=== PATIENT | female | born 1945 | race Caucasian/White ===

== ENCOUNTER 2023-07-08 13:15 | Emergency (ER) | payer MEDICARE ==
[2023-07-08 13:24] VITALS: TEMP 97.1
[2023-07-08] MEDS ORDERED: KETOROLAC 15 MG/ML 1 ML VIAL IM STA (14:13)
--- NOTE | 2023-07-08 14:13 | ED ---
General Adult HPI - General Chief complaint: Fall Stated complaint: fall Time Seen by Provider: 07/08/23 13:30 Source: patient, RN notes reviewed, old records reviewed Mode of arrival: EMS Limitations: no limitations - History of Present Illness Initial comments: This is a 77-year-old female presents emergency department stating she slipped out of bed onto her about her left hip hurt. Patient states it doesn't hurt as bad as it did earlier and she is currently moving into bed. Patient states that on the lateral posterior aspect of the hip. Patient denies hitting her head neck. Patient denies hitting anything else per patient has no other complaints - Related Data Home Medications Medication Instructions Recorded Confirmed Pantoprazole Sodium [Protonix] 40 mg PO DAILY 05/20/14 03/12/15 traMADol HCl [Ultram] 50 mg PO Q6H PRN 05/20/14 03/12/15 Ascorbic Acid [Vitamin C] 500 mg PO DAILY@1200 03/12/15 03/12/15 Calcium Carbonate [Calcium] 600 mg PO DAILY 03/12/15 03/12/15 Gabapentin [Neurontin] 400 mg PO TID 03/12/15 03/12/15 HYDROcodone/APAP 10-325MG [[place] 1 tab PO Q6H PRN 03/12/15 03/12/15 10-325] Multivitamins, Thera [Multivitamin 1 tab PO DAILY@1200 03/12/15 03/12/15 (formulary)] Vitamin B Complex 1 tab PO DAILY 03/12/15 03/12/15 Vitamin E (Dl,Tocopheryl Acet) 1,000 unit PO DAILY 03/12/15 03/12/15 [Vitamin E] Previous Rx's Medication Instructions Recorded Cefuroxime [Ceftin] 250 mg PO BID #20 tablet 03/15/15 Allergies Allergy/AdvReac Type Severity Reaction Status Date / Time No Known Allergies Allergy Verified 03/12/15 11:46 Review of Systems ROS Statement: Those systems with pertinent positive or pertinent negative responses have been documented in the HPI. ROS Other: All systems not noted in ROS Statement are negative. Past Medical History Past Medical History: Osteoarthritis (OA) Additional Past Medical History / Comment(s): SPINAL STENOSIS, NEUROPATHY LEGS, FX LEFT HIP, WOUND ON LEFT HEEL . History of Any Multi-Drug Resistant Organisms: None Reported Past Surgical History: Orthopedic Surgery Additional Past Surgical History / Comment(s): RT SHOULDER SURG, REPAIR OF PERFORATED DUODENAL ULCER, HX OF FX LEFT HIP WITH SURGERY X2 ([facility] 2014) Past Anesthesia/Blood Transfusion Reactions: No Reported Reaction Past Psychological History: No Psychological Hx Reported Past Alcohol Use History: None Reported Past Drug Use History: None Reported - Past Family History Father Family Medical History: Cancer General Exam - General Exam Comments Initial Comments: GENERAL: Patient is well-developed and well-nourished. Patient is nontoxic and well- hydrated and is in no acute distress. ENT: Neck is soft and supple. No significant lymphadenopathy is noted. Oropharynx is clear. Moist mucous membranes. Neck has full range of motion without eliciting any pain. EYES: The sclera were anicteric and conjunctiva were pink and moist. Extraocular movements were intact and pupils were equal round and reactive to light. Eyelids were unremarkable. SKIN: Skin is clear with no lesions or rashes and otherwise unremarkable. NEUROLOGIC: Patient is alert and oriented x3. Cranial nerves II through XII are grossly intact. Motor and sensory are also intact. Normal speech, volume and content. Symmetrical smile. MUSCULOSKELETAL: Normal extremities with adequate strength and full range of motion. No lower extremity swelling or edema. No calf tenderness. Patient has some tenderness on the lateral posterior aspect of her left hip LYMPHATICS: No significant lymphadenopathy is noted PSYCHIATRIC: Normal psychiatric evaluation. Limitations: no limitations Course Vital Signs 07/08/23 13:20 Temperature 97.1 F L Pulse Rate 96 Respiratory 16 Rate O2 Sat by Pulse 96 Oximetry Medical Decision Making - Medical Decision Making Was pt. sent in by a medical professional or institution (, PA, CABLE ENGINEER, urgent care, hospital, or [facility]...) When possible be specific @ -No Did you speak to anyone other than the patient for history (EMS, parent, family, police, friend...)? What history was obtained from this source @ -No Did you review nursing and triage notes (agree or disagree)? Why? @ -I reviewed and agree with nursing and triage notes Were old charts reviewed (outside hosp., previous admission, EMS record, old EKG, old radiological studies, urgent care reports/EKG's, [facility] records)? Report findings @ -No old charts were reviewed Differential Diagnosis (chest pain, altered mental status, abdominal pain women, abdominal pain men, vaginal bleeding, weakness, fever, dyspnea, syncope, headache, dizziness, GI bleed, back pain, seizure, CVA, palpatations, mental health, musculoskeletal)? @ -Differential musculoskeletal EKG interpreted by me (3pts min.). @ -As above X-rays interpreted by me (1pt min.). @ -X-ray of the hip and pelvis show no acute abnormality CT interpreted by me (1pt min.). @ -None done U/S interpreted by me (1pt. min.). @ -None done What testing was considered but not performed or refused? (CT, X-rays, U/S, labs)? Why? @ -None What meds were considered but not given or refused? Why? @ -None Did you discuss the management of the patient with other professionals (professionals i.e. , PA, CABLE ENGINEER, lab, RT, psych nurse, criminal justice social worker, quality control microbiology supervisor, teacher, chief business officer, behavioral health case manager)? Give summary @ -No Was smoking cessation discussed for >3mins.? @ -No Was critical care preformed (if so, how long)? @ -No Were there social determinants of health that impacted care today? How? (Homelessness, low income, unemployed, alcoholism, drug addiction, transportation, low edu. Level, literacy, decrease access to med. care, intermediate, rehab)? @ -No Was there de-escalation of care discussed even if they declined (Discuss DNR or withdrawal of care, Hospice)? DNR status @ -No What co-morbidities impacted this encounter? (DM, HTN, Smoking, COPD, CAD, Cancer, CVA, ARF, Chemo, Hep., AIDS, mental health diagnosis, sleep apnea, morbid obesity)? @ -None Was patient admitted / discharged? Hospital course, mention meds given and route, prescriptions, significant lab abnormalities, going to OR and other pertinent info. @ -Patient's x-ray showed no acute abnormality. Patient was able to ablate. Patient received Toradol and it didn't help with the pain. Undiagnosed new problem with uncertain prognosis? @ -No Drug Therapy requiring intensive monitoring for toxicity (Heparin, Nitro, Insulin, Cardizem)? @ -No Were any procedures done? @ -No Diagnosis/symptom? @ -Hip contusion Acute, or Chronic, or Acute on Chronic? @ -Acute Uncomplicated (without systemic symptoms) or Complicated (systemic symptoms)? @ -Complicated Side effects of treatment? @ -No Exacerbation, Progression, or Severe Exacerbation? @ -No Poses a threat to life or bodily function? How? (Chest pain, [place], [place], pneumonia, PE, COPD, DKA, ARF, appy, cholecystitis, CVA, Diverticulitis, Homicidal, Suicidal, threat to staff... and all critical care pts) @ -No Disposition Clinical Impression: Fall, Contusion, hip Disposition: HOME SELF-CARE Condition: Good Instructions (If sedation given, give patient instructions): Fall Prevention fo r Older Adults (ED), Contusion in Adults (ED) Is patient prescribed a controlled substance at d/c from ED?: No Referrals: Lucas Kwon MD [Primary Care Provider] - 1-2 days Time of Disposition: 14:25
--- NOTE | 2023-07-08 14:15 | XR ---
EXAMINATION TYPE: XR Hip LT and AP Pelvis DATE OF EXAM: 07/08/2023 2:09 PM INDICATION: Patient age:Female; 77 years old; Reason for study: Fall; PHH. COMPARISON: Pelvic radiograph 03/11/2015 TECHNIQUE: The left hip was examined in the frontal and lateral projections and a AP pelvis. FINDINGS: Postsurgical changes from left hip arthroplasty. Hardware appears intact. There is surround ing heterotopic ossification redemonstrated.No evidence of any acute osseous pathology, joint disloca tion, or soft tissue swelling. Mild osteoarthritic changes of the right hip with medial joint space n arrowing and acetabular sclerosis. Marked degenerative changes of the visualized lower lumbar spine. Few pelvic phleboliths. IMPRESSION: 1. No acute osseous pathology. 2. Postsurgical changes from left hip arthroplasty. Hardware appears intact. 3. Mild osteoarthritic changes of the right hip.
[2023-07-08 15:23] VITALS: BP 131/76; PULSE 89; RESP 18
== END 2023-07-08 15:23 | disposition home or self-care (01) ==
LOC: EC 13:15
DX: S70.02XA Contusion of left hip, initial encounter (principal); M16.11 Unilateral primary osteoarthritis, right hip; W06.XXXA Fall from bed, initial encounter
CPT/HCPCS: 73502; 99284; J1885

== ENCOUNTER 2025-04-22 17:42 | Emergency (ER) | payer MEDICARE ==
--- NOTE | 2025-04-22 18:55 | ED ---
Back Pain HPI - General Chief Complaint: Back Pain/Injury Stated Complaint: numbness Time Seen by Provider: 04/22/25 18:40 Source: patient, RN notes reviewed, old records reviewed Limitations: no limitations - History of Present Illness Initial Comments: This is a 79-year-old female with no new trauma coming in with severe back pain today. History of spinal stenosis severe pain is more severe today with numbness and tingling into her buttocks. Patient has no neurological complaints no loss of bowel or bladder no new trauma MD Complaint: back pain -: hour(s) Radiation: none Severity scale (1-10): 10 Quality: sharp Consistency: constant Improves With: none Worsens With: none Associated Symptoms: denies other symptoms Treatments Prior to Arrival: other - Related Data Home Medications Medication Instructions Recorded Confirmed Pantoprazole Sodium [Protonix] 40 mg PO DAILY 05/20/14 03/12/15 traMADol HCl [Ultram] 50 mg PO Q6H PRN 05/20/14 03/12/15 Ascorbic Acid [Vitamin C] 500 mg PO DAILY@1200 03/12/15 03/12/15 Calcium Carbonate [Calcium] 600 mg PO DAILY 03/12/15 03/12/15 Gabapentin [Neurontin] 400 mg PO TID 03/12/15 03/12/15 HYDROcodone/APAP 10-325MG [[place] 1 tab PO Q6H PRN 03/12/15 03/12/15 10-325] Multivitamins, Thera [Multivitamin 1 tab PO DAILY@1200 03/12/15 03/12/15 (formulary)] Vitamin B Complex 1 tab PO DAILY 03/12/15 03/12/15 Vitamin E (Dl,Tocopheryl Acet) 1,000 unit PO DAILY 03/12/15 03/12/15 [Vitamin E] Previous Rx's Medication Instructions Recorded Cefuroxime [Ceftin] 250 mg PO BID #20 tablet 03/15/15 Allergies Allergy/AdvReac Type Severity Reaction Status Date / Time No Known Allergies Allergy Verified 04/22/25 18:01 Review of Systems ROS Statement: Those systems with pertinent positive or pertinent negative responses have been documented in the HPI. ROS Other: All systems not noted in ROS Statement are negative. Past Medical History Past Medical History: Osteoarthritis (OA) Additional Past Medical History / Comment(s): SPINAL STENOSIS, NEUROPATHY LEGS, FX LEFT HIP, WOUND ON LEFT HEEL . History of Any Multi-Drug Resistant Organisms: None Reported Past Surgical History: Orthopedic Surgery Additional Past Surgical History / Comment(s): RT SHOULDER SURG, REPAIR OF PERFORATED DUODENAL ULCER, HX OF FX LEFT HIP WITH SURGERY X2 ([facility] 2014) Past Anesthesia/Blood Transfusion Reactions: No Reported Reaction Past Psychological History: No Psychological Hx Reported Smoking Status: Never smoker Past Alcohol Use History: None Reported Past Drug Use History: None Reported - Past Family History Father Family Medical History: Cancer General Exam Limitations: no limitations General appearance: alert, in no apparent distress Head exam: Present: atraumatic, normocephalic, normal inspection Eye exam: Present: normal appearance, PERRL, EOMI. Absent: scleral icterus, conjunctival injection, periorbital swelling ENT exam: Present: normal exam, mucous membranes moist Neck exam: Present: normal inspection. Absent: tenderness, meningismus, lymphadenopathy Respiratory exam: Present: normal lung sounds bilaterally. Absent: respiratory distress, wheezes, rales, rhonchi, stridor Cardiovascular Exam: Present: regular rate, normal rhythm, normal heart sounds. Absent: systolic murmur, diastolic murmur, rubs, gallop, clicks GI/Abdominal exam: Present: soft, normal bowel sounds. Absent: distended, tenderness, guarding, rebound, rigid Extremities exam: Present: normal inspection, full ROM, normal capillary refill. Absent: tenderness, pedal edema, joint swelling, calf tenderness Back exam: Present: normal inspection Neurological exam: Present: alert, oriented X3, CN II-XII intact Psychiatric exam: Present: normal affect, normal mood Skin exam: Present: warm, dry, intact, normal color. Absent: rash Course Vital Signs 04/22/25 17:56 Temperature 98.6 F Pulse Rate 98 Respiratory 17 Rate Blood Pressure 121/74 O2 Sat by Pulse 96 Oximetry - Reevaluation(s) Reevaluation #1: 04/22/25 21:22 Medical records reviewed Reevaluation #2: 04/22/25 21:22 Patient symptoms improving Reevaluation #3: 04/22/25 21:22 Patient informed of results questions answered Reevaluation #4: Was pt. sent in by a medical professional or institution (, PA, PROGRAM DEVELOPER, urgent care, hospital, or alf...) When possible be specific @ -no Did you speak to anyone other than the patient for history (EMS, parent, family, police, friend...)? What history was obtained from this source @ -no Did you review nursing and triage notes (agree or disagree)? Why? @ -agree Are old charts reviewed (outside hosp., previous admission, EMS record, old EKG, old radiological studies, urgent care reports/EKG's, alf records)? Report findings @ -yes Differential Diagnosis (chest pain, altered mental status, abdominal pain women, abdominal pain men, vaginal bleeding, weakness, fever, dyspnea, syncope, headache, dizziness, GI bleed, back pain, seizure, CVA, palpatations, mental health, musculoskeletal)? @ -prior EKG interpreted by me (3pts min.). @ -yes X-rays interpreted by me (1pt min.). @ -yes negative for acute disease CT interpreted by me (1pt min.). @ -no U/S interpreted by me (1pt. min.). @ -no What testing was considered but not performed or refused? (CT, X-rays, U/S, labs)? Why? @ -none What meds were considered but not given or refused? Why? @ -none Did you discuss the management of the patient with other professionals (professionals i.e. , PA, PROGRAM DEVELOPER, lab, RT, psych nurse, social professionals, skein yarn drier, teacher, staff air defense officer, manager rn case)? Give summary @ -no Was smoking cessation discussed for >3mins.? @ -no Was critical care preformed (if so, how long)? @ -no Were there social determinants of health that impacted care today? How? (Homelessness, low income, unemployed, alcoholism, drug addiction, transportation, low edu. Level, literacy, decrease access to med. care, shelter, rehab)? @ -none Was there de-escalation of care discussed even if they declined (Discuss DNR or withdrawal of care, Hospice)? DNR status @ -no What co-morbidities impacted this encounter? (DM, HTN, Smoking, COPD, CAD, Cancer, CVA, ARF, Chemo, Hep., AIDS, mental health diagnosis, sleep apnea, morbid obesity)? @ -none Was patient admitted / discharged? Hospital course, mention meds given and route, prescriptions, significant lab abnormalities, going to OR and other pertinent info. @ - Undiagnosed new problem with uncertain prognosis? @ -no Drug Therapy requiring intensive monitoring for toxicity (Heparin, Nitro, Insulin, Cardizem)? @ -no Were any procedures done? @ -no Diagnosis/symptom? @ - Acute, or Chronic, or Acute on Chronic? @ -Acute Uncomplicated (without systemic symptoms) or Complicated (systemic symptoms)? @ -Complicated Side effects of treatment? @ -no Exacerbation, Progression, or Severe Exacerbation? @ -exacerbation Poses a threat to life or bodily function? How? (Chest pain, [place], [place], pneumonia, PE, COPD, DKA, ARF, appy, cholecystitis, CVA, Diverticulitis, Homicidal, Suicidal, threat to staff... and all critical care pts) @ -yes Reevaluation #5: Differential Back Pain: Strain, zoster, cauda equina syndrome, epidural abscess, vertebral osteomyelitis, discitis, fracture, subluxation, disc herniation, DJD, spinal stenosis, dissection, AAA, pancreatitis, peptic ulcer disease, pyelonephritis, kidney stone, this is not meant to be an all-inclusive list. Medical Decision Making - Medical Decision Making 79 female severe back pain. Patient is ambulatory, no loss of bowel or bladder. Patient has adequate pain control and can be discharged home, CT scan is negative for any acute changes positive known spinal stenosis - Radiology Data Radiology results: report reviewed (CT abdomen pelvis LS-spine positive spinal stenosis), image reviewed Disposition Clinical Impression: Thoracic back pain, Mid back pain, Lumbar radiculopathy, Spinal stenosis Disposition: HOME SELF-CARE Condition: Fair Instructions (If sedation given, give patient instructions): Acute Low Back Pain (ED) Is patient prescribed a controlled substance at d/c from ED?: No Referrals: Lucas Kwon MD [Primary Care Provider] - 1-2 days Time of Disposition: 21:00
[2025-04-22] MEDS: HYDROmorphone 1 MG/ML 1 ML SYRINGE IVP STA (19:46)
[2025-04-22] MEDS: DEXAMETHASONE SOD PHOSPHATE 10 MG/ML 1 ML VIAL IVP STA (19:47)
[2025-04-22] MEDS: KETOROLAC 15 MG/ML 1 ML VIAL IVP STA (19:47)
[2025-04-22] MEDS: HYDROmorphone 1 MG/ML 1 ML SYRINGE IM STA (19:48)
[2025-04-22] MEDS: dexAMETHasone 2 MG TAB PO STA (19:53)
[2025-04-22] MEDS: IBUPROFEN 800 MG TAB PO STA (19:53)
--- NOTE | 2025-04-22 20:22 | CT ---
EXAMINATION TYPE: CT abdomen pelvis wo con DATE OF EXAM: 04/22/2025 7:50 PM COMPARISON: None. CLINICAL INDICATION: Female, 79 years old with history of pain; pt has chronic back issues and states pain has increased. pt states she has spinal stensosis hx No priors KT TECHNIQUE: Axial CT abdomen pelvis wo con;Sagittal and coronal reformats were created on a separate workstation. Oral contrast used: without Oral Contrast (none if empty) CT DLP: combines DLP 1028.4 mGycm, Automated exposure control for dose reduction was used. FINDINGS: LOWER CHEST: Unremarkable ABDOMEN LIVER: Unremarkable GALLBLADDER AND BILE DUCTS: Layering increased densities within the lumen consistent with gallstones are present. PANCREAS: Unremarkable. SPLEEN: Unremarkable. ADRENAL GLANDS: Unremarkable. KIDNEYS AND URETERS: No evidence of hydronephrosis or renal calculus. The ureters are unremarkable. PELVIS BLADDER: No evidence for wall thickening or mass given limitations of exam. REPRODUCTIVE: Unremarkable. ABDOMEN & PELVIS STOMACH AND BOWEL: Stomach and duodenum are unremarkable. Scattered diverticula are noted throughout the colon. No evidence of bowel obstruction. PERITONEUM/RETROPERITONEUM: No evidence of pneumoperitoneum or free fluid. VASCULATURE: No evidence of aortic aneurysm. MUSCULOSKELETAL: No acute osseous abnormalities. Multilevel lumbosacral spinal degenerative changes. Lesser marked plasty. LYMPH NODES: No gross evidence for lymphadenopathy. SOFT TISSUE/ABDOMINAL WALL: Tiny fat-containing periumbilical hernia. IMPRESSION: No acute abnormality in the abdomen/pelvis. [facility], , 04/22/2025 8:19 PM
--- NOTE | 2025-04-22 21:07 | CT ---
EXAMINATION TYPE: CT lumbar spine wo con DATE OF EXAM: 04/22/2025 7:50 PM COMPARISON: None available. CLINICAL INDICATION: Female, 79 years old with history of pain; PHH, pt has chronic back issues and s tates pain has increased. pt states she has spinal stensosis hx No priors KT TECHNIQUE: Multiple axial images were obtained from the midportion of T11 through the sacroiliac leisa nts. Soft tissue and bone windows in coronal and sagittal planes were obtained and reviewed. 3-D ref ormats of the bones were created on a separate workstation and submitted for review. CT DLP: 1028.4 combined DLP mGycm, Automated exposure control for dose reduction was used. FINDINGS: Alignment: There are 5 lumbar type vertebral bodies present for the purposes of this examination. Dex troconvex scoliotic curvature centered at L1-L2. Grade 1 anterolisthesis of L4 on L5 and minimal retr olisthesis of L2 on L3. Osseous structures appear demineralized. Multilevel anterior osteophyte forma tion. Bone: No evidence of fracture is identified. Discs: T12-L1: Left paracentral/foraminal disc osteophyte protrusion effaces the ventral thecal sac and caus es mild spinal canal stenosis and severe left foraminal stenosis. Mild right-sided foraminal stenosis due to facet arthropathy. L1-L2: Severe facet arthropathy and disc osteophyte complex eccentric to the left effacing the ventra l thecal sac without significant spinal canal stenosis. Severe left foraminal stenosis and mild right foraminal narrowing. L2-L3: Facet arthropathy and circumferential disc bulging cause [id number] central canal stenos is. Facet arthropathy and ligament flavum hypertrophy causes moderate bilateral neural foraminal narr owing. L3-L4: Facet arthropathy and inflammation with circumferential disc bulging causes severe spinal omaira l stenosis and bilateral neural foraminal narrowing. L4-L5: Grade 1 anterolisthesis of L4 on L5 with associated uncovering of disc material and facet arth ropathy causing [id number] spinal canal stenosis and moderate to severe bilateral neural fora ivone narrowing. L5-S1: Severe right and moderate left neural foraminal narrowing due to facet arthropathy. No high-gr forest spinal canal stenosis. Other: Partially visualized cholelithiasis. Calcified atherosclerotic disease of the abdominal aorta. Extensive colonic diverticulosis. Left hip arthroplasty partially visualized. IMPRESSION: 1. No acute osseous abnormality. 2. Advanced multilevel lumbosacral spinal degenerative changes with severe spinal canal stenosis at L3-L4 as described above. More definitive evaluation could be obtained with outpatient MRI lumbar spi ne as clinically warranted. 3. The convex sclerotic curvature centered at L1-L2. 4. Grade 1 anterolisthesis of L4 on L5. 5. Cholelithiasis. [facility], , 04/22/2025 9:05 PM
[2025-04-22] MEDS: traMADol 50 MG STARTER PACK 3 TAB BTL PO STA (21:29)
[2025-04-22] MEDS: ACET/COD 300 MG/30 MG STARTER PACK 6 TAB BTL PO STA (21:30)
[2025-04-22 21:35] VITALS: BP 131/78; PULSE 96; RESP 16; TEMP 97.8
== END 2025-04-22 21:33 | disposition home or self-care (01) ==
LOC: EC 17:42
DX: M48.061 Spinal stenosis, lumbar region without neurogenic claudication (principal); M54.16 Radiculopathy, lumbar region; M54.6 Pain in thoracic spine
CPT/HCPCS: 72131; 74176; 99284; 96372; J1171; J8540